=== PATIENT | female | born 1975 | race Caucasian/White ===

== ENCOUNTER 2024-10-08 18:31 | Emergency (ER) | payer BC, OTHER ==
[~2024-10-08] VITALS: Ht 152.4 cm; Wt 78.0 kg
[2024-10-08 18:39] VITALS: PULSE 73; RESP 18; TEMP 98
[2024-10-08] MEDS ORDERED: CYCLOBENZAPRINE10 MG PO (19:14)
[2024-10-08 19:19] VITALS: BP 162/97; O2SAT 100
== END 2024-10-08 19:39 | disposition home or self-care (01) ==
LOC: FSED 19:13
DX: S16.1XXA Strain of muscle, fascia and tendon at neck level, initial encounter (principal); M62.838 Other muscle spasm; V43.53XA Car driver injured in collision with pick-up truck in traffic accident, initial encounter; Y92.488 Other paved roadways as the place of occurrence of the external cause; Z86.718 Personal history of other venous thrombosis and embolism; Z86.79 Personal history of other diseases of the circulatory system
CPT/HCPCS: 99283